=== PATIENT | male | born 1975 | race Caucasian/White ===

== ENCOUNTER 2019-10-16 10:56 | Emergency (ER) | payer BC, OTHER ==
--- NOTE | 2019-10-16 12:59 | RAD REPORT ---
EXAM DESCRIPTION: RAD - Shoulder Right 2 View - 10/16/2019 12:10 pm CLINICAL HISTORY: Right shoulder pain FINDINGS: No fracture or dislocation is seen.
--- NOTE | 2019-10-16 13:13 | ER ---
Nurse's Notes [facility] Name: Dereck Swartz Age: 44 yrs Sex: Male : 1975 Arrival Date: 10/16/2019 Time: 10:57 Bed 15 Private MD: Diagnosis: Unspecified sprain of right shoulder joint Presentation: 10/16 11:27 Presenting complaint: Patient states: Was pulling up on something while climbing, felt ph R shoulder pop, now has pain and decreased ROM. Transition of care: patient was not received from another setting of care. Onset of symptoms was October 16, 2019. Risk Assessment: Do you want to hurt yourself or someone else? Patient reports no desire to harm self or others. Initial Sepsis Screen: Does the patient meet any 2 criteria? No. Patient's initial sepsis screen is negative. Does the patient have a suspected source of infection? No. Patient's initial sepsis screen is negative. Care prior to arrival: None. 11:27 Method Of Arrival: Ambulatory ph 11:27 Acuity: SOPHIA 4 ph Historical: - Allergies: 11:29 No Known Allergies; ph - Home Meds: 11:29 None [Active]; ph - PMHx: 11:29 None; ph - Immunization history:: Adult Immunizations up to date, Flu vaccine is up to date. - Coronavirus screen:: The patient has NOT traveled to [place], [place], or [place] in the past 14 days. The patient has NOT had contact with known/suspected case of Coronavirus?. - Social history:: Smoking status: Patient reports the use of cigarette tobacco products, denies chronic smoking, but will smoke occasionally. - Family history:: not pertinent. - Ebola Screening: : No symptoms or risks identified at this time. - Hospitalizations: : No recent hospitalization is reported. Screenin:58 Abuse screen: Denies threats or abuse. Denies injuries from another. Nutritional ph screening: No deficits noted. Tuberculosis screening: No symptoms or risk factors identified. Fall Risk None identified. Assessment: 11:57 General: Appears in no apparent distress. uncomfortable, well groomed, Behavior is ph calm, cooperative, appropriate for age. Pain: Complains of pain in anterior aspect of right shoulder and posterior aspect of right shoulder. Neuro: Level of Consciousness is awake, alert, obeys commands, Oriented to person, place, time, situation. Cardiovascular: Capillary refill < 3 seconds in bilateral fingers Patient's skin is warm and dry. Respiratory: Airway is patent Respiratory effort is even, unlabored. Derm: Skin is intact, Skin is pink, warm \T\ dry. Musculoskeletal: Circulation, motion, and sensation intact. Range of motion: limited in right shoulder. Vital Signs: 11:28 BP 126 / 85; Pulse 77; Resp 18; Temp 98.1; Pulse Ox 98% on R/A; Weight 102.06 kg; ph Height 6 ft. 0 in. (182.88 cm); Pain 9/10; 11:28 Body Mass Index 30.52 (102.06 kg, 182.88 cm) ph ED Course: 10:57 Patient arrived in ED. as 11:27 Jane Velasquez RN is Primary Nurse. ph 11:28 Triage completed. ph 11:30 Db Nava MD is Attending Physician. rn 11:30 Arm band placed on Patient placed in an exam room. ph 11:58 Patient has correct armband on for positive identification. Bed in low position. Call ph light in reach. Side rails up X 1. 12:11 Shoulder Right (2 View) XRAY In Process Unspecified. EDMS Administered Medications: No medications were administered Outcome: 13:12 Discharge ordered by . rn 13:33 Patient left the ED. iw Signatures: Dispatcher [employer] EDMS Ambreen Florez Irene, RN RN Db Nava MD MD rn Hall, Patricia, RN RN
--- NOTE | 2019-10-16 13:13 | EDPHYS ---
Physician Documentation [facility] Name: Dereck Swartz Age: 44 yrs Sex: Male : 1975 Arrival Date: 10/16/2019 Time: 10:57 Bed 15 Private MD: ED Physician Db Nava HPI: 10/16 12:12 This 44 yrs old Male presents to ER via Ambulatory with complaints of rn Shoulder Pain. 12:12 The patient or guardian complains of decreased range of motion, an injury, pain. right rn shoulder. Onset: The symptoms/episode began/occurred just prior to arrival. Modifying factors: the symptoms are alleviated by nothing. The symptoms are aggravated by movement, rotation of arm. Severity of symptoms: At their worst the symptoms were moderate, in the emergency department the symptoms are unchanged. The patient has not experienced similar symptoms in the past. Reports climbing slipped, and was still holding on with right arm, + heard 5 snaps to right shoulder, now hurts to elevated arm. . Historical: - Allergies: 11:29 No Known Allergies; ph - Home Meds: 11:29 None [Active]; ph - PMHx: 11:29 None; ph - Immunization history:: Adult Immunizations up to date, Flu vaccine is up to date. - Coronavirus screen:: The patient has NOT traveled to [place], [place], or [place] in the past 14 days. The patient has NOT had contact with known/suspected case of Coronavirus?. - Social history:: Smoking status: Patient reports the use of cigarette tobacco products, denies chronic smoking, but will smoke occasionally. - Family history:: not pertinent. - Ebola Screening: : No symptoms or risks identified at this time. - Hospitalizations: : No recent hospitalization is reported. ROS: 12:12 Constitutional: Negative for fever, chills, and weight loss, Neck: Negative for injury, rn pain, and swelling, Cardiovascular: Negative for chest pain, palpitations, and edema, Respiratory: Negative for shortness of breath, cough, wheezing, and pleuritic chest pain, Abdomen/GI: Negative for abdominal pain, nausea, vomiting, diarrhea, and constipation, Back: Negative for injury and pain, MS/Extremity: + right shoulder pain and injury Skin: Negative for injury, rash, and discoloration, Neuro: Negative for headache, weakness, numbness, tingling, and seizure. Exam: 12:12 Constitutional: This is a well developed, well nourished patient who is awake, alert, rn appears uncomfortable, holding right arm in passive flexion Head/Face: Normocephalic, atraumatic. Eyes: Pupils equal round and reactive to light, extra-ocular motions intact. Lids and lashes normal. Conjunctiva and sclera are non-icteric and not injected. Cornea within normal limits. Periorbital areas with no swelling, redness, or edema. Neck: Trachea midline, no thyromegaly or masses palpated, and no cervical lymphadenopathy. Supple, full range of motion without nuchal rigidity, or vertebral point tenderness. No Meningismus. Abdomen/GI: Soft, non-tender Skin: Warm, dry MS/ Extremity: Pulses equal, no cyanosis. Neurovascular intact. Full, normal range of motion. Equal circumference. Neuro: Awake and alert, GCS 15 Vital Signs: 11:28 BP 126 / 85; Pulse 77; Resp 18; Temp 98.1; Pulse Ox 98% on R/A; Weight 102.06 kg; ph Height 6 ft. 0 in. (182.88 cm); Pain 9/10; 11:28 Body Mass Index 30.52 (102.06 kg, 182.88 cm) ph MDM: 11:30 Patient medically screened. rn 13:11 Differential diagnosis: humeral head fracture, tendonitis, rotator cuff injury. Data rn reviewed: vital signs, nurses notes, radiologic studies, plain films. Test interpretation: by ED physician or midlevel provider: plain radiologic studies, Xray right shoulder neg for fracture/dislocation. Counseling: I had a detailed discussion with the patient and/or guardian regarding: the historical points, exam findings, and any diagnostic results supporting the discharge/admit diagnosis, radiology results, the need for outpatient follow up, to return to the emergency department if symptoms worsen or persist or if there are any questions or concerns that arise at home. Special discussion: I discussed with the patient/guardian in detail that at this point there is no indication for admission to the hospital. It is understood, however, that if the symptoms persist or worsen the patient needs to return immediately for re-evaluation. Further emergent ED testing is not indicated at this point in time. I discussed with the patient/guardian in detail the need to arrange with the PCP or specialist further outpatient testing, MRI. 10/16 11:33 Order name: Shoulder Right (2 View) XRAY; Complete Time: 13:11 ph 10/16 11:42 Order name: Sling; Complete Time: 11:54 rn Administered Medications: No medications were administered Disposition: 10/16/19 13:12 Discharged to Home. Impression: Unspecified sprain of right shoulder joint. - Condition is Stable. - Discharge Instructions: Shoulder Sprain. - Prescriptions for Cyclobenzaprine 10 mg Oral Tablet - take 1 tablet by ORAL route every 8 hours As needed; 20 tablet. Tramadol 50 mg Oral Tablet - take 1 tablet by ORAL route every 8 hours as needed; 15 tablet. - Work release form, Medication Reconciliation Form, Thank You Letter, Antibiotic Education, Prescription Opioid Use form. - Follow up: Private Physician; When: As needed; Reason: Recheck today's complaints, Re-evaluation by your physician. - Problem is new. - Symptoms have improved. Signatures: Dispatcher [employer] [facility] Neelam Garcia RN RN Db Nava MD MD rn Hall, Patricia, RN RN Corrections: (The following items were deleted from the chart) 12:19 11:43 [place] Right+RAD.RAD.[email or web address] ordered. [facility] 13:33 13:12 10/16/2019 13:12 Discharged to Home. Impression: Unspecified sprain of right iw shoulder joint. Condition is Stable. Forms are Medication Reconciliation Form, Thank You Letter, Antibiotic Education, Prescription Opioid Use. Follow up: Private Physician; When: As needed; Reason: Recheck today's complaints, Re-evaluation by your physician. Problem is new. Symptoms have improved. rn
[2019-10-16 13:40] VITALS: BP 126/85; TEMP 98.1; O2SAT 98
== END 2019-10-16 13:33 | disposition home or self-care (01) ==
LOC: ER 10:56
DX: S43.401A Unspecified sprain of right shoulder joint, initial encounter (principal); Y93.39 Activity, other involving climbing, rappelling and jumping off; Z72.0 Tobacco use
CPT/HCPCS: 99282